=== PATIENT | male | born 1940 | race Caucasian/White ===

== ENCOUNTER 2021-05-31 06:58 | Day surgery (SDC) | payer OTHER ==
[~2021-05-31] VITALS: Ht 188 cm; Wt 102.1 kg
[~2021-05-31 06:58] MED LIST: ALEN70TA74 PO; ATOR10TA PO; BENA40TA8 PO; DILT-93 PO; GLIP5TAB12 PO; HYDR25TA4 PO; METF-929 PO; METO25TA5 PO; MULT-940 PO; PIOG45TA62 PO; WARF2TAB49 PO; WARF3TAB22 PO
[2021-05-31] MEDS ORDERED: MIDAZOLAM HCL 2MG/2ML 2ml VIAL (1mg/ml) IV ONE (07:45)
[2021-05-31] MEDS ORDERED: fentaNYL CITRATE 100 MCG/2 ML VL IV ONE (07:45)
[2021-05-31] MEDS ORDERED: LIDOCAINE VISCOUS 2% 15ML UD MT ONE (07:45)
== END 2021-05-31 10:21 | disposition home or self-care (01) ==
LOC: CATH 06:58
PROVIDERS: ATTEND Internal Medicine
DX: Z01.810 Encounter for preprocedural cardiovascular examination (principal); F32.9 Major depressive disorder, single episode, unspecified; K21.9 Gastro-esophageal reflux disease without esophagitis; M41.82 Other forms of scoliosis, cervical region; Z98.890 Other specified postprocedural states; Z79.899 Other long term (current) drug therapy; Z87.891 Personal history of nicotine dependence; Z85.51 Personal history of malignant neoplasm of bladder; Z20.822 Contact with and (suspected) exposure to COVID-19
CPT/HCPCS: 93312; J2250; J3010; U0003; 99152

== ENCOUNTER 2023-06-03 13:42 | Emergency (ER) | payer OTHER ==
[~2023-06-03] VITALS: Ht 188 cm; Wt 97.8 kg
[~2023-06-03 13:42] MED LIST changes: +BENA40TA70 PO; -BENA40TA8 PO; +WARF-111 PO; -WARF2TAB49 PO; -WARF3TAB22 PO; +WARF4TAB69 PO
[2023-06-03 13:59] VITALS: O2SAT 97
[2023-06-03 14:38] LABS: Basophils # (auto) 0.1 10 ^3/uL (0-0.2); Eosinophils # (auto) 0.2 10 ^3/uL (0-0.8); Eosinophils % (auto) 2.9 % (0.0-7.0); Hematocrit 42.2 % (41.0-53.0); Hemoglobin 14.1 g/dL (13.5-17.5); Lymphocytes # (auto) 1.2 10 ^3/uL (0.4-5.4); Lymphocytes % (auto) 17.6 % (10.0-50.0); Mean Corpuscular Hemoglobin 32.5 pg (28.0-32.0); Mean Corpuscular Hgb Conc. 33.5 g/dL (32.0-36.0); Monocytes # (auto) 0.7 10 ^3/uL (0-1.3); Monocytes % (auto) 10.3 % (0.0-12.0); Neutrophils # (auto) 4.6 10 ^3/uL (1.6-8.6); Neutrophils % (auto) 68.2 % (37.0-80.0); Red Blood Cells 4.35 10^6/uL (4.5-5.90); White Blood Cell 6.8 10^3/uL (4.4-10.8)
[2023-06-03 14:58] LABS: Alanine Aminotransferase 20 U/L (7-40); Albumin 4.5 g/dL (3.2-4.8); Alkaline Phosphatase 114 U/L (46-116); Anion Gap 10 (5-15); Aspartate Aminotransferase 22 U/L (13-40); BUN/Creatinine Ratio 18.5 (10.0-20.0); Blood Urea Nitrogen 27 mg/dL (9-23); Calcium 9.7 mg/dL (8.5-10.1); Carbon Dioxide 28 mmol/L (20-30); Chloride 104 mmol/L (98-107); Glucose 208 mg/dL (74-106); Potassium 4.3 mmol/L (3.5-5.1); Sodium 142 mmol/L (136-145)
[2023-06-03 14:59] LABS: Bilirubin, Total 0.7 mg/dL (0.2-1.0); Total Protein 7.5 g/dL (5.7-8.2)
[2023-06-03 15:09] LABS: Partial Thromboplastin Time 65.7 SEC (24.5-34.5); Prothrombin Time 39.8 sec (9.3-11.8)
[2023-06-03 15:10] LABS: INR 4.16 (0.9-1.15)
[2023-06-03] MEDS ORDERED: FUROSEMIDE 20 MG/2 ML VIAL IV ONE (16:45)
[2023-06-03] MEDS ORDERED: CEPH250C PO (17:22)
[2023-06-03 18:06] VITALS: BP 144/85; PULSE 74; RESP 16
== END 2023-06-03 17:25 | disposition home or self-care (01) ==
LOC: ER 13:42
DX: L03.116 Cellulitis of left lower limb (principal); E11.65 Type 2 diabetes mellitus with hyperglycemia; R79.1 Abnormal coagulation profile; I10 Essential (primary) hypertension
CPT/HCPCS: 36415; 73590; 73600; 80053; 83880; 84484; 85025; 85610; 85730; 93970; 96374; 99285; J1940